=== PATIENT | male | born 1930 ===

== ENCOUNTER 2017-05-29 10:51 | Day surgery (SDC) | payer BC ==
[~2017-05-29] VITALS: Ht 171.4 cm; Wt 86.2 kg
[2017-05-29] VITALS (10 sets, daily range): BP systolic 91–124; BP diastolic 43–69
[~2017-05-29 10:51] MED LIST: ASPIR 8181 MG ORAL; BENAZEPRIL-HCT1 EAC1 ORAL; CRESTOR20 MG ORAL; FISH OIL CAP1000 MG ORAL; LATANOPROST2.5 ML BOTH EYES; Proparacaine 0.5% Opth Soln 15ml RIGHT EYE ONE; VITAMIN D1000 UNI1 ORAL
[2017-05-29] MEDS ORDERED: Kenalog-40 1ml Vial ONE (11:06)
[2017-05-29] MEDS ORDERED: BSS 500ml btl ONE ×2 (11:06→13:34)
[2017-05-29] MEDS ORDERED: Pred Forte 1% Opth Susp 1ml ONE (11:06)
[2017-05-29] MEDS ORDERED: Maxitrol Opth Oint 3.5gm ONE (11:07)
[2017-05-29] MEDS ORDERED: Dexamethasone 4mg/ml vial ONE (11:07)
[2017-05-29] MEDS ORDERED: Povidone-Iodine 5% opth solution ONE (11:07)
[2017-05-29] MEDS ORDERED: Tetracaine 0.5% Opth 4ml Soln ONE (11:07)
[2017-05-29] MEDS ORDERED: BSS 15ml BTL ONE (11:08)
[2017-05-29] MEDS ORDERED: Bupivacaine 0.75% 30ml vial INJ ONE (11:08)
[2017-05-29] MEDS ORDERED: Goniosol 2.5% Opth Soln - 15ml ONE (11:08)
[2017-05-29] MEDS ORDERED: Sodium Hyaluronate 10 mg/ml 0.85ml ONE (11:08)
[2017-05-29] MEDS ORDERED: Lidocaine 2% MPF 5ml Vial INJ ONE (11:08)
[2017-05-29] MEDS ORDERED: EPINEPHrine 1mg/1ml Amp ONE (11:09)
[2017-05-29] MEDS ORDERED: Tropicamide 1% Opth 15ml Soln ONE (11:13)
[2017-05-29] MEDS ORDERED: Cyclopentolate 1% Opth Sol 2ml ONE (11:13)
[2017-05-29] MEDS ORDERED: Phenylephrine 2.5% Op 2ml Soln ONE (11:13)
[2017-05-29] MEDS ORDERED: Proparacaine 0.5% Opth Soln 15ml ONE (11:14)
[2017-05-29] MEDS: Cyclopentolate 1% Opth Sol 2ml RIGHT EYE SCH ×3 (11:33→11:53)
[2017-05-29] MEDS: Tropicamide 1% Opth 15ml Soln RIGHT EYE SCH ×3 (11:34→11:53)
[2017-05-29] MEDS: Phenylephrine 2.5% Op 2ml Soln RIGHT EYE SCH ×3 (11:34→11:53)
[2017-05-29] MEDS ORDERED: NS Irrig 1000ml ONE (12:30)
[2017-05-29] MEDS ORDERED: ePHEDrine 50mg/ml Inj ONE (12:30)
[2017-05-29] MEDS ORDERED: Propofol 200mg/20ml IV ONE (12:30)
[2017-05-29] MEDS ORDERED: Midazolam 2mg/2ml Inj ONE (12:30)
[2017-05-29] MEDS ORDERED: fentaNYL 100 mcg/2 mL IV ONE (12:30)
[2017-05-29] MEDS ORDERED: LR 1000ml ONE (12:30)
[2017-05-29] MEDS ORDERED: Sterile Water Irrig 1000ml IRRIG ONE (12:30)
[2017-05-29] MEDS ORDERED: Phenylephrine 10mg/ml Vial ONE (12:30)
--- NOTE | 2017-05-29 12:43 | Pre-Procedure Note/Attestation ---
Pre-Procedure Note/Attestation Complete Prior to Procedure Planned Procedure: right Procedure Narrative: VH and RRD OD; SB/PPV/RTO/PFO/EL/AFE/SO OD Vitreous hemorrhage and rhegmatogenous retinal detachment, Right Eye Cataract, Right Eye Indications for Procedure Pre-Operative Diagnosis: Vitreous hemorrhage and rhegmatogenous retinal detachment, Right Eye Cataract, Right Eye Attestation I attest that I discussed the nature of the procedure; its benefits; risks and complications; and alternatives (and the risks and benefits of such alternatives ), prior to the procedure, with the patient (or the patient's legal risk control field representative). I attest that, if there was a reasonable possibility of needing a blood transfusion, the patient (or the patient's legal risk control field representative) was given the [facility] standardized written summary, pursuant to the [place] Blood Safety Act ([place] Health and Safety Code # 1645, as amended). I attest that I re-evaluated the patient just prior to the surgery and that there has been no change in the patient's H&P, except as documented below: Dale Odonnell M.D. May 29, 2017 12:43
--- NOTE | 2017-05-29 12:44 | Operative Note - PDOC ---
Operative Note Operative Note Pre-op Diagnosis: Vitreous hemorrhage and rhegmatogenous retinal detachment, Right Eye Cataract, Right Eye Procedure: Scleral buckle (41 band, 71 sleeve), pars plans vitrectomy (23 gauge), PFO infusion, endolaser, air-fluid exchange, infusion of C3F8 gas (14%), RIGHT EYE Post-op Diagnosis: Same Surgeon: Belle Anesthesia: general Specimen: none Complications: none Condition: stable Fluids: Minimal Estimated Blood Loss: minimal Drains: none Implant(s) used?: No Indications for Procedure Vitreous hemorrhage and rhegmatogenous retinal detachment, Right Eye Cataract, Right Eye Description of Procedure Pre-operative Diagnosis: 1. Vitreous hemorrhage and retinal detachment, RIGHT EYE 2. Cataract, RIGHT EYE Post-operative Diagnosis: 1. Vitreous hemorrhage, inferior rhegmatogenous retinal detachment, superior retinoschisis, RIGHT EYE 2. Cataract, RIGHT EYE Procedure: Scleral buckle (41 band, 71 sleeve), pars plans vitrectomy (23 gauge ), PFO infusion, endolaser, air-fluid exchange, infusion of C3F8 gas (14%), RIGHT EYE Surgeon: Dale Odonnell M.D. Anesthesia: General anesthesia Complications: None Indications for the procedure: The patient has vision loss due to vitreous hemorrhage and retinal detachment. He presents today for surgery after review of the risks, benefits, alternative and signing informed consent into the medical chart. Procedure performed: The patient was met in the pre-op area where informed consent was reviewed. The operative eye was verified, marked and dilated. The patient was transferred to the operative suite, where cardiopulmonary monitoring was established and general anesthesia was administered without complications. The eye was prepped and draped in sterile ophthalmic fashion. A lid speculum was placed. Under direct visualization, the conjunctiva was opened and the quadrants were dissected. The rectus muscles were isolated and hooked with silk sutures. The quadrants were inspected and no scleral defects were noted. The 42 band was encircled around the globe with its ends attached in the superonasal quadrant with the 71 sleeve. The buckle was sutured to the sclera with 5-0 nylon sutures at 4mm posterior to the muscle insertions in all 4 quadrants. The buckle was pulled flush against the globe, then 10mm beyond flush. The anterior chamber was tapped to reduce the intraocular pressure. The buckle ends were trimmed. Under microscope visualization, the 23 gauge infusion line was placed 4 millimeters inferotemporally. After visualization of the tip in the vitreous cavity, the infusion line was turned on. The superotemporal and superonasal cannulas were placed. Under ReSight visualization, peripheral and core vitrectomy was performed. As the vitreous hemorrhage was removed inferior retinal detachment and bullous area superiorly was noted. Meticulous vitrectomy was performed up to the edges of the retinal tears inferiorly. As the vitreous was trimmed from the tears, the retina relaxed and flattened further infeirorly. While there were areas of thinning superiorly, the area was noted to be retinoschisis. PFO was infused into the eye and peripheral laser was applied to the retinal tears, surrounding the schisis and along the buckle shelfAir fluid exchange was performed to remov the PFO and infusion of C3F8 (14%) was completed. The cannulas and infusion line were removed and sutured with 6-0 vicryl sutures. The eye maintained normal intraocular pressure. The stay sutures were removed, the conjunctiva was pulled into place and closed with 5-0 plain gut sutures. Subconjunctival vancomycin and dexamethasone were administered. The lid speculum was removed. The eye was cleaned of prep and drape. Atropine drop and Maxitrol ointment was applied. A pressure patch was placed. The patient was turned over to the anesthesia team, extubated and transferred in stable condition to the PACU. Dale Odonnell M.D. May 29, 2017 12:44
--- NOTE | 2017-05-29 13:19 | Anethesia Preoperative Eval ---
Anesthesia Pre-op PMH/ROS General Date of Evaluation: May 29, 2017 Time of Evaluation: 12:25 Anesthesiologist: Jenniffer ASA Score: ASA 2 Mallampati Score Class I : Soft palate, uvula, fauces, pillars visible Class II: Soft palate, uvula, fauces visible Class III: Soft palate, base of uvula visible Class IV: Only hard plate visible Mallampati Classification: Class II Surgeon: Belle Diagnosis: virteous hemmorage right eye Surgical Procedure: Right eye vitectomy, endolaser gas or oil exchange scleral buckle Anesthesia History: none Social History: smoking - quit 17 years ago Family History: no anesthesia problems Allergies: Coded Allergies: No Known Allergies (Unverified , 05/28/17) Medications: see eMAR Past Medical History Cardiovascular: Reports: HTN, CAD, valve dz - AV replacement in 1999 Gastrointestinal/Genitourinary: Reports: other - prostate problem Neurologic/Psychiatric: Reports: depression/anxiety Musculoskeletal/Integumentary: Reports: OA Anesthesia Pre-op Phys. Exam Physician Exam Last Vital Signs Date Time Temp Pulse Resp B/P (MAP) Pulse Ox O2 Delivery O2 Flow Rate FiO2 05/29/17 11:38 97.2 74 20 124/56 97 Room Air Constitutional: NAD Neurologic: CN 2-12 intact Cardiovascular: RRR Respiratory: CTA Gastrointestinal: S/NT/ND Airway Exam Mallampati Score: Class II MO: full ROM: full Teeth: missing - partial Anesthesia Pre-op A/P Studies Pre-op Studies: EKG - Afib Risk Assessment & Plan Assessment: A&Ox3 Plan: GENERAL per Surgeon Status Change Before Surgery: No Pre-Antibiotics Given Within 1 Hr of Incision: No Fara Abad PRINTED CIRCUIT [employer]ARD ASSEMBLER May 29, 2017 13:19
--- NOTE | 2017-05-29 13:19 | Immediate Post-Op Evaluation ---
Immediate Post-Op Evalulation Immediate Post-Op Evalulation Date of Evaluation: May 29, 2017 Time of Evaluation: 14:45 IV Fluids: LR 800 ml Blood Products: 0 Estimated Blood Loss: less than 5 ml Urinary Output: 0 Blood Pressure Systolic: 103 Blood Pressure Diastolic: 53 Pulse Rate: 71 Respiratory Rate: 14 O2 Sat by Pulse Oximetry: 98 Temperature (Fahrenheit): 97.6 Pain Score (1-10): 0 Nausea: No Vomiting: No Patient Status: awake, reacts, patent Hydration Status: adequate Given Within 1 Hr of Incision: Fara Elizabeth CRNA May 29, 2017 13:19
--- NOTE | 2017-05-29 14:55 | 48 Hour Post Anesthesia Eval ---
Post Anesthesia Evaluation Date of Evaluation: May 29, 2017 Time of Evaluation: 14:53 Blood Pressure Systolic: 102 0: 54 Pulse Rate: 72 Respiratory Rate: 16 Temperature (Fahrenheit): 97.6 O2 Sat by Pulse Oximetry: 99 Airway: patent Nausea: No Vomiting: No Pain Intensity: 0 Hydration Status: adequate Mental Status/LOC: patient returned to baseline Follow-up Care/Observations: pt to prone position per surgeon until tomorrow Follow-up care needed: patient intructions given Fara Abad CRNA May 29, 2017 14:55
[2017-05-29] MEDS ORDERED: Metoclopramide 10mg/2ml Inj IVP PRN (15:00)
[2017-05-29] MEDS ORDERED: fentaNYL 100 mcg/2 mL IV PRN (15:00)
[2017-08-01] MEDS ORDERED: fentaNYL 100 mcg/2 mL IV PRN (09:00)
[2017-08-01] MEDS ORDERED: Metoclopramide 10mg/2ml Inj IVP PRN (09:00)
[2017-08-01] MEDS ORDERED: Pilocarpine 4% Opth 15ml Soln ONE (10:25)
== END 2017-05-29 16:00 | disposition home or self-care (01) ==
LOC: SUR 10:51
DX: H43.11 Vitreous hemorrhage, right eye (principal); H33.001 Unspecified retinal detachment with retinal break, right eye; H26.9 Unspecified cataract; I10 Essential (primary) hypertension; I25.10 Atherosclerotic heart disease of native coronary artery without angina pectoris; F32.9 Major depressive disorder, single episode, unspecified; F41.9 Anxiety disorder, unspecified; M19.90 Unspecified osteoarthritis, unspecified site; Z87.891 Personal history of nicotine dependence; Z95.2 Presence of prosthetic heart valve
CPT/HCPCS: 67108; J0171; J1100; J2250; J2370; J2405; J2704; J3010; J3301; J3370; J3490; J7120; 94003; 94150

== ENCOUNTER 2017-08-01 06:49 | Day surgery (SDC) | payer BC ==
[2017-08-01] VITALS (10 sets, daily range): BP systolic 94–112; BP diastolic 58–68
[~2017-08-01] VITALS: Ht 171.4 cm; Wt 90.7 kg
[~2017-08-01 06:49] MED LIST changes: -Proparacaine 0.5% Opth Soln 15ml RIGHT EYE ONE; +Proparacaine 0.5% Opth Soln 15ml RIGHT EYE SCH
[2017-08-01] MEDS: Tropicamide 1% Opth 15ml Soln RIGHT EYE SCH ×3 (07:26→07:50)
[2017-08-01] MEDS: Phenylephrine 2.5% Op 2ml Soln RIGHT EYE SCH ×3 (07:26→07:48)
[2017-08-01] MEDS: Cyclopentolate 1% Opth Sol 2ml RIGHT EYE SCH ×3 (07:27→07:50)
[2017-08-01] MEDS ORDERED: BSS 500ml btl ONE (08:02)
[2017-08-01] MEDS ORDERED: Kenalog-40 1ml Vial ONE (08:02)
[2017-08-01] MEDS ORDERED: Dexamethasone 4mg/ml vial ONE (08:03)
[2017-08-01] MEDS ORDERED: Tetracaine 0.5% Opth 4ml Soln ONE (08:03)
[2017-08-01] MEDS ORDERED: Maxitrol Opth Oint 3.5gm ONE (08:03)
[2017-08-01] MEDS ORDERED: Pred Forte 1% Opth Susp 1ml ONE (08:03)
[2017-08-01] MEDS ORDERED: Goniosol 2.5% Opth Soln - 15ml ONE (08:04)
[2017-08-01] MEDS ORDERED: EPINEPHrine 1mg/1ml Amp ONE (08:04)
[2017-08-01] MEDS ORDERED: Acetylcholine Injection (OR) ONE (08:04)
[2017-08-01] MEDS ORDERED: BSS 15ml BTL ONE (08:04)
[2017-08-01] MEDS ORDERED: Povidone-Iodine 5% opth solution ONE (08:04)
[2017-08-01] MEDS ORDERED: Lidocaine 2% MPF 5ml Vial INJ ONE (08:04)
[2017-08-01] MEDS ORDERED: Bupivacaine 0.75% 30ml vial INJ ONE (08:04)
[2017-08-01] MEDS ORDERED: Sodium Hyaluronate 10 mg/ml 0.85ml ONE (08:05)
[2017-08-01] MEDS ORDERED: Midazolam 2mg/2ml Inj ONE (09:00)
[2017-08-01] MEDS ORDERED: Lidocaine 1% MPF 10mg/ml 5ml ONE (09:00)
[2017-08-01] MEDS ORDERED: LR 1000ml ONE (09:00)
[2017-08-01] MEDS ORDERED: Sterile Water Irrig 1000ml IRRIG ONE (09:00)
[2017-08-01] MEDS ORDERED: Propofol 200mg/20ml IV ONE (09:00)
[2017-08-01] MEDS ORDERED: Phenylephrine 10mg/ml Vial ONE (09:00)
[2017-08-01] MEDS ORDERED: fentaNYL 100 mcg/2 mL IV ONE (09:00)
[2017-08-01] MEDS ORDERED: NS Irrig 1000ml ONE (09:00)
--- NOTE | 2017-08-01 09:09 | Anethesia Preoperative Eval ---
Anesthesia Pre-op PMH/ROS General Date of Evaluation: Aug 01, 2017 Time of Evaluation: 09:08 Anesthesiologist: siva ASA Score: ASA 2 Mallampati Score Class I : Soft palate, uvula, fauces, pillars visible Class II: Soft palate, uvula, fauces visible Class III: Soft palate, base of uvula visible Class IV: Only hard plate visible Mallampati Classification: Class II Surgeon: butch Diagnosis: narrow angle right eye Surgical Procedure: vitrectomy Anesthesia History: none Family History: no anesthesia problems Allergies: Coded Allergies: No Known Allergies (Unverified , 05/28/17) Medications: see eMAR Past Medical History Cardiovascular: Reports: HTN, valve dz Pulmonary: Denies: asthma, COPD, MATT, other Gastrointestinal/Genitourinary: Denies: GERD, CRI, ESRD, other Neurologic/Psychiatric: Reports: depression/anxiety Endocrine: Denies: DM, hypothyroidism, steroids, other HEENT: Reports: cataract (R) Hematology/Immune: Denies: anemia, DVT, bleeding disorder, other Musculoskeletal/Integumentary: Denies: OA, RA, DJD, DDD, edema, other Other: obesity Anesthesia Pre-op Phys. Exam Physician Exam Last Vital Signs Date Time Temp Pulse Resp B/P (MAP) Pulse Ox O2 Delivery O2 Flow Rate FiO2 08/01/17 07:29 97.8 104 18 112/66 97 Room Air Constitutional: NAD Neurologic: CN 2-12 intact Cardiovascular: RRR Respiratory: CTA Gastrointestinal: S/NT/ND Airway Exam Mallampati Score: Class II MO: full Neck: thick ROM: full Dentures: upper Anesthesia Pre-op A/P Studies Pre-op Studies: EKG - sr Risk Assessment & Plan Plan: mac Status Change Before Surgery: No Pre-Antibiotics Drug: none BUSHRA PRITCHARD DIGITAL OPERATIONS ANALYST Aug 01, 2017 09:09
[2017-08-01] MEDS ORDERED: fentaNYL 100 mcg/2 mL IV PRN (09:15)
[2017-08-01] MEDS ORDERED: Metoclopramide 10mg/2ml Inj IVP PRN (09:15)
--- NOTE | 2017-08-01 09:29 | Pre-Procedure Note/Attestation ---
Pre-Procedure Note/Attestation Complete Prior to Procedure Planned Procedure: right Procedure Narrative: Vision limited due to cataract following surgery OD Indications for Procedure Pre-Operative Diagnosis: Cataract and history of RD OD Attestation I attest that I discussed the nature of the procedure; its benefits; risks and complications; and alternatives (and the risks and benefits of such alternatives ), prior to the procedure, with the patient (or the patient's legal community engagement representative). I attest that, if there was a reasonable possibility of needing a blood transfusion, the patient (or the patient's legal community engagement representative) was given the [facility] standardized written summary, pursuant to the [place] Blood Safety Act ([place] Health and Safety Code # 1645, as amended). I attest that I re-evaluated the patient just prior to the surgery and that there has been no change in the patient's H&P, except as documented below: Dale Odonnell M.D. Aug 01, 2017 09:29
--- NOTE | 2017-08-01 09:30 | Brief Operative Note ---
Immediate Post Operative Note Operative Note Pre-op Diagnosis: Cataract and history of RD OD Procedure: Pars plana vitrectomy, pars plana lensectomy/phacofragmentation, endolaser, air- fluid exchange, RIGHT EYE Post-op Diagnosis: Same Anesthesia: local Specimen: none Complications: none Condition: stable Fluids: Min Estimated Blood Loss: none Drains: none Implant(s) used?: Dale Leyva M.D. Aug 01, 2017 09:30
--- NOTE | 2017-08-01 09:30 | Operative Note - PDOC ---
Operative Note Operative Note Pre-op Diagnosis: Cataract and history of RD OD Procedure: Pars plana vitrectomy, pars plana lensectomy/phacofragmentation, endolaser, air- fluid exchange, RIGHT EYE Post-op Diagnosis: same as pre-op Surgeon: Belle Anesthesia: local Specimen: none Complications: none Condition: stable Fluids: Min Estimated Blood Loss: none Drains: none Implant(s) used?: No Indications for Procedure Indications for the procedure: The patient has vision loss due dense cataract and presents today for surgery after review of the risks, benefits, alternative and signing informed consent into the medical chart.~ Description of Procedure Procedure performed:~ The patient was met in the pre-operative area where informed consent was reviewed. The operative eye was verified, marked and dilated. The patient was transferred to the operative suite, where cardiopulmonary monitoring was established and retrobulbar anesthetic was administered without complications. The eye was prepped and draped in sterile ophthalmic fashion. Under microscope visualization the 23 gauge infusion line was placed 4 millimeters inferotemporally. The infusion line was turned on.~ The superotemporal and superonasal cannulas were placed.~ The AC was deepened with healon.~ The MVR blade was used to putnam the cataract.~ The phacofragmentome was used to emulsify the very dense nucleus of the lens and the lens capsule was removed.~ The adhesions to the iris were released.~ Under ReSight visualization, limited vitrectomy was performed and the residual lens fragments were removed with the phaco.~ The previously treated tears were reinforced with endolaser.~ ~Inspection of the periphery revealed no iatrogenic breaks. Air fluid exchange was performed.~ The cannulas were removed and sutured.~ The eye maintained normal intraocular pressure.~ Subconjunctival vancomycin and dexamethasone were administered. The lid speculum was removed. The eye was cleaned of prep and drape. Atropine drop and Maxitrol ointment was applied.~ A pressure patch was placed. The patient was turned over to the anesthesia team and transferred in stable condition to the PACU. Dale Odonnell M.D. Aug 01, 2017 09:30
--- NOTE | 2017-08-01 09:30 | Pre-Procedure Note/Attestation ---
Pre-Procedure Note/Attestation Complete Prior to Procedure Planned Procedure: right Procedure Narrative: History of RD repair with subsequent cataract due to supine positioning with gas OD Indications for Procedure Pre-Operative Diagnosis: Cataract and history of RD OD Attestation I attest that I discussed the nature of the procedure; its benefits; risks and complications; and alternatives (and the risks and benefits of such alternatives ), prior to the procedure, with the patient (or the patient's legal admissions representative). I attest that, if there was a reasonable possibility of needing a blood transfusion, the patient (or the patient's legal admissions representative) was given the [facility] standardized written summary, pursuant to the Andrew [place] Blood Safety Act ([place] Health and Safety Code # 1645, as amended). I attest that I re-evaluated the patient just prior to the surgery and that there has been no change in the patient's H&P, except as documented below: Dale Odonnell M.D. Aug 01, 2017 09:30
--- NOTE | 2017-08-01 10:32 | Immediate Post-Op Evaluation ---
Immediate Post-Op Evalulation Immediate Post-Op Evalulation Procedure: vitrectomy Date of Evaluation: Aug 01, 2017 Time of Evaluation: 10:31 IV Fluids: 800 Blood Pressure Systolic: 100 Blood Pressure Diastolic: 66 Pulse Rate: 91 Respiratory Rate: 14 O2 Sat by Pulse Oximetry: 99 Temperature (Fahrenheit): 97.1 Pain Score (1-10): 0 Nausea: No Vomiting: No Complications none Patient Status: awake, patent Hydration Status: adequate Drug: none BUSHRA PRITCHARD CRNA Aug 01, 2017 10:32
== END 2017-08-01 12:00 | disposition home or self-care (01) ==
LOC: SUR 06:49
DX: H26.9 Unspecified cataract (principal); I10 Essential (primary) hypertension; F32.9 Major depressive disorder, single episode, unspecified; F41.9 Anxiety disorder, unspecified
CPT/HCPCS: 66850; 67036; J0171; J1100; J2250; J2370; J2704; J3010; J3301; J3370; J3490; J7120; 94003; 94150